=== PATIENT | male | born 1995 | race Caucasian/White ===

== ENCOUNTER 2020-01-16 16:13 | Emergency (ER) | payer OTHER ==
[~2020-01-16] VITALS: Ht 175.3 cm; Wt 61.2 kg
== END 2020-01-16 19:46 | disposition home or self-care (01) ==
LOC: ER 16:13
DX: G44.209 Tension-type headache, unspecified, not intractable (principal)

== ENCOUNTER 2020-01-26 14:22 | Emergency (ER) | payer OTHER ==
[~2020-01-26] VITALS: Ht 175.3 cm; Wt 52.2 kg
== END 2020-01-26 18:34 | disposition home or self-care (01) ==
LOC: ER 14:22
DX: N39.0 Urinary tract infection, site not specified (principal); I95.89 Other hypotension